=== PATIENT | male | born 1950 | race Caucasian/White ===

== ENCOUNTER → 2024-03-25 19:15 | Outpatient (REF) | payer OTHER, SELFPAY | LOC: MRI 3T 19:15 | PROVIDERS: ATTENDING PHYSICIAN Urology; FAMILY PHYSICIAN Internal Medicine | DX: C61 Malignant neoplasm of prostate (principal); R97.20 Elevated prostate specific antigen [PSA]; R33.9 Retention of urine, unspecified | CPT/HCPCS: 72197; A9575 ==

== ENCOUNTER → 2024-04-08 18:02 | Outpatient (REF) | payer OTHER, SELFPAY | LOC: RAD 18:02 | PROVIDERS: ATTENDING PHYSICIAN Orthopaedic Surgery; FAMILY PHYSICIAN Internal Medicine | DX: M50.30 Other cervical disc degeneration, unspecified cervical region (principal) | CPT/HCPCS: 72050; 72110 ==

== ENCOUNTER → 2024-05-05 17:18 | Outpatient (REF) | payer OTHER, SELFPAY | LOC: PAVMRI 17:18 | PROVIDERS: ATTENDING PHYSICIAN Orthopaedic Surgery; FAMILY PHYSICIAN Internal Medicine | DX: M50.30 Other cervical disc degeneration, unspecified cervical region (principal); M54.16 Radiculopathy, lumbar region | CPT/HCPCS: 72141; 72148 ==

== ENCOUNTER → 2025-03-02 10:24 | Outpatient (REF) | payer OTHER, SELFPAY | LOC: MRI 3T 10:24 | PROVIDERS: ATTENDING PHYSICIAN Urology; FAMILY PHYSICIAN Internal Medicine | DX: C61 Malignant neoplasm of prostate (principal) | CPT/HCPCS: 72197; A9575 ==

== ENCOUNTER → 2025-05-04 13:17 | Outpatient (REF) | payer OTHER, SELFPAY | LOC: HWRAD 13:17 | PROVIDERS: ATTENDING PHYSICIAN Internal Medicine Endocrinology, Diabetes & Metabolism; FAMILY PHYSICIAN Internal Medicine | DX: M85.80 Other specified disorders of bone density and structure, unspecified site (principal); M81.0 Age-related osteoporosis without current pathological fracture | CPT/HCPCS: 77080 ==